=== PATIENT | female | born 2000 | race Caucasian/White ===

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

== ENCOUNTER 2021-02-23 00:43 | Emergency (ER) | payer MEDICAID ==
--- NOTE | 2021-02-23 02:02 | ERPHSYRPT ---
- History of Present Illness Source: patient, other (SO) Exam Limitations: no limitations Patient Subjective Stated Complaint: pt states "I am having upper back pain since this morning." Triage Nursing Assessment: pt ambulated into the er; pt is axo x4; c/o upper back pain; pt states 8/10 pain to upper back; pt denies injury to back; pt denies twisting or lifting heavy objects; pt has clear lung sounds in all lobes; clear heart tones; tenderness to upper back with palpitation; no deformity present; vitals wnl Physician History: 20 yo wf w superior thoracic pain starting at 17:00. Pain is sharp-stabbing, 5 out 10, and worse w movement. She states that the pain radiates to her chest at times. Trauma is denied, along w dyspnea/N/V/diaphoresis/fever/cough. Pt has never had this pain before. is denied. Timing/Duration: other (17:00) Method of Injury: other (No injury) Quality: sharp, stabbing Back Pain Location: T-spine Severity of Pain-Max: severe Severity of Pain-Current: moderate Modifying Factors: Improves With: nothing, movement Associated Symptoms: No fever, No chills, No sweating, No urinary incontinence, No loss of bowel control, No constipation, No nausea, No vomiting, No problems urinating, No light-headedness, No dizziness, No numbness in legs/feet, No weakness, No sensory/motor loss, No tingling in legs/feet, No lower back pain, No muscle spasms Previous symptoms: no prior history Allergies/Adverse Reactions: No Known Drug Allergies Allergy (Verified 02/23/21 01:24) Hx Tetanus, Diphtheria Vaccination/Date Given: Yes (May 2018) Hx Influenza Vaccination/Date Given: Yes Hx Pneumococcal Vaccination/Date Given: No Travel Risk - International Travel Have you traveled outside of the country in past 3 weeks: No - Coronavirus Screening Are you exhibiting any of the following symptoms?: No Close contact with a COVID-19 positive Pt in past 14-21 Days: No - Vaccine Status Have you recieved a Covid-19 vaccination: No - Review of Systems Constitutional: No Symptoms Eyes: No Symptoms Ears, Nose, & Throat: No Symptoms Respiratory: No Symptoms Cardiac: No Symptoms, Chest Pain Abdominal/Gastrointestinal: No Symptoms Genitourinary Symptoms: No Symptoms Musculoskeletal: No Symptoms Skin: No Symptoms Neurological: No Symptoms Psychological: No Symptoms Endocrine: No Symptoms Hematologic/Lymphatic: No Symptoms Immunological/Allergic: No Symptoms - Past Medical History Pertinent Past Medical History: No Neurological History: No Pertinent History ENT History: No Pertinent History Cardiac History: No Pertinent History Respiratory History: No Pertinent History Endocrine Medical History: No Pertinent History Musculoskeletal History: No Pertinent History GI Medical History: No Pertinent History History: No Pertinent History Psycho-Social History: No Pertinent History Female Reproductive Disorders: No Pertinent History - Past Surgical History Past Surgical History: Yes Neuro Surgical History: No Pertinent History Cardiac: No Pertinent History Respiratory: No Pertinent History Gastrointestinal: No Pertinent History Genitourinary: No Pertinent History Musculoskeletal: No Pertinent History Female Surgical History: Dilation & Curettage Other Surgical History: D&C 09/2018 - Social History Smoking Status: Never smoker Exposure to second hand smoke: No Drug Use: none Patient Lives Alone: No Significant Family History: no pertinent family hx - Female History Hx Now: No (unknown) - Nursing Vital Signs Nursing Vital Signs: Initial Vital Signs Temperature 99 F 02/23/21 01:28 Pulse Rate 81 02/23/21 01:28 Respiratory Rate 16 02/23/21 01:28 Blood Pressure 122/69 02/23/21 01:28 O2 Sat by Pulse Oximetry 100 02/23/21 01:28 Pain Scale Pain Intensity [Upper Back] 8 Pain Intensity 5 WNL - Physical Exam General Appearance: no apparent distress Eye Exam: PERRL/EOMI, eyes nml inspection Ears, Nose, Throat Exam: normal ENT inspection, TMs normal, pharynx normal Neck Exam: normal inspection, non-tender, supple, full range of motion, No meningismus Respiratory Exam: normal breath sounds, lungs clear, airway intact, No chest tenderness, No respiratory distress Cardiovascular Exam: regular rate/rhythm, normal heart sounds, normal peripheral pulses, No murmur Gastrointestinal Exam: soft, normal bowel sounds, No tenderness Back Exam: normal range of motion, vertebral tenderness (Mid T-spine paraspinous musculature TTP), No CVA tenderness Extremity Exam: normal inspection, normal range of motion Peripheral Pulses: carotid (R): 2+, carotid (L): 2+ Neurologic Exam: alert, oriented x 3, cooperative, engineer geophysical laboratory II-XII nml as tested, normal mood/affect, nml cerebellar function, nml station & gait, sensation nml, No motor deficits, No sensory deficit Skin Exam: normal color, warm, dry Lymphatic Exam: No adenopathy SpO2 Interpretation: normal SpO2: 100 O2 Delivery: Room Air - Course EKG Interpreted by Me: RATE (NSR/R67/Normal QT-QTc/Low voltage) Ordered Tests: Active Orders 24 hr Category Date Time Status EKG-ER Only STAT Care 02/23/21 01:56 Completed CHEST 1 VIEW (PORTABLE) Stat Exams 02/23/21 01:57 Taken CBC W DIFF Stat Lab 02/23/21 02:10 Completed CMP Stat Lab 02/23/21 02:10 Completed D-DIMER QUANTITATIVE Stat Lab 02/23/21 02:10 Completed TROPONIN Q3H Lab 02/23/21 02:10 Completed Medication Summary Discontinued Medications Generic Name Dose Route Start Last Admin Trade Name Freq PRN Reason Stop Dose Admin Ketorolac Tromethamine 60 mg 02/23/21 02:55 02/23/21 02:57 Toradol 30 Mg Injection IM 02/23/21 02:56 60 mg STAT ONE Administration Ketorolac Tromethamine Confirm 02/23/21 02:56 Toradol 30 Mg Injection Administered 02/23/21 02:57 Dose 60 mg [facility] Lab/Rad Data: Laboratory Result Diagrams 02/23/21 02:10 02/23/21 02:10 Laboratory Results 02/23/21 02/23/21 02/23/21 Range/Units 02:10 02:10 02:10 WBC (4.0-10.5) K/mm3 RBC (4.1-5.4) M/mm3 Hgb (12.0-16.0) gm/dl Hct (35-47) % MCV (78-100) fl MCH (26-32) pg MCHC (32-36) g/dl RDW (11.5-14.0) % Plt Count (150-450) K/mm3 MPV (7.5-11.0) fl Gran % (36.0-66.0) % Eos # (Auto) (0-0.5) Absolute Lymphs (auto) (1.0-4.6) Absolute Monos (auto) (0.0-1.3) Lymphocytes % (24.0-44.0) % Monocytes % (0.0-12.0) % Eosinophils % (0.00-5.0) % Basophils % (0.0-0.4) % Absolute Granulocytes (1.4-6.9) Basophils # (0-0.4) D-Dimer 256 (215-500) ng/mL Sodium 140 (137-145) mmol/L Potassium 4.3 (3.5-5.1) mmol/L Chloride 103 (98-107) mmol/L Carbon Dioxide 28 (22-30) mmol/L Anion Gap 12.9 (5-15) MEQ/L BUN 9 (7-17) mg/dL Creatinine 0.72 (0.52-1.04) mg/dL Estimated GFR > 60.0 ML/MIN Glucose 101 (74-106) mg/dL Calcium 9.2 (8.4-10.2) mg/dL Total Bilirubin 0.30 (0.2-1.3) mg/dL AST 27 (14-36) U/L ALT 16 (0-35) U/L Alkaline Phosphatase 80 (38-126) U/L Troponin I < 0.012 (0.000-0.034) ng/mL Serum Total Protein 7.7 (6.3-8.2) g/dL Albumin 4.3 (3.5-5.0) g/dL 02/23/21 Range/Units 02:10 WBC 6.5 (4.0-10.5) K/mm3 RBC 5.18 (4.1-5.4) M/mm3 Hgb 13.5 (12.0-16.0) gm/dl Hct 42.0 (35-47) % MCV 81.1 (78-100) fl MCH 26.1 (26-32) pg MCHC 32.1 (32-36) g/dl RDW 14.6 H (11.5-14.0) % Plt Count 394 (150-450) K/mm3 MPV 9.4 (7.5-11.0) fl Gran % 50.8 (36.0-66.0) % Eos # (Auto) 0.21 (0-0.5) Absolute Lymphs (auto) 2.28 (1.0-4.6) Absolute Monos (auto) 0.65 (0.0-1.3) Lymphocytes % 35.3 (24.0-44.0) % Monocytes % 10.1 (0.0-12.0) % Eosinophils % 3.3 (0.00-5.0) % Basophils % 0.5 (0.0-0.4) % Absolute Granulocytes 3.28 (1.4-6.9) Basophils # 0.03 (0-0.4) D-Dimer (215-500) ng/mL Sodium (137-145) mmol/L Potassium (3.5-5.1) mmol/L Chloride (98-107) mmol/L Carbon Dioxide (22-30) mmol/L Anion Gap (5-15) MEQ/L BUN (7-17) mg/dL Creatinine (0.52-1.04) mg/dL Estimated GFR ML/MIN Glucose (74-106) mg/dL Calcium (8.4-10.2) mg/dL Total Bilirubin (0.2-1.3) mg/dL AST (14-36) U/L ALT (0-35) U/L Alkaline Phosphatase (38-126) U/L Troponin I (0.000-0.034) ng/mL Serum Total Protein (6.3-8.2) g/dL Albumin (3.5-5.0) g/dL - Progress Progress Note: 02/23/21 02:56 60mg IM Toradol Counseled pt/family regarding: lab results, diagnosis, need for follow-up, rad results - Departure Departure Disposition: Home Clinical Impression: Back pain Condition: Stable Critical Care Time: No Referrals: SERGIO PRICE NP [Primary Care Provider] - Instructions: Upper Back Pain (DC) Additional Instructions: Rest/Heat/Massage Toradol as needed for pain Prescriptions: Ketorolac Tromethamine [Toradol] 10 mg PO TID PRN #10 tablet PRN Reason: Pain
[2021-02-23 02:16] LABS: Absolute Neutrophil Ct (ANC) 3.28 (1.4-6.9); BASOPHIL % 0.5 % (0.0-0.4); Basophil (Absolute #) 0.03 (0-0.4); Eosinophil % 3.3 % (0.00-5.0); Eosinophil (Absolute #) 0.21 (0-0.5); Hemoglobin 13.5 gm/dl (12.0-16.0); Lymphocyte (Absolute #) 2.28 (1.0-4.6); Lymphocytes % 35.3 % (24.0-44.0); Mean Cell Volume 81.1 fl (78-100); Mean Corpuscular Hemoglobin 26.1 pg (26-32); Mean Corpuscular Hgb Concent. 32.1 g/dl (32-36); Mean Platelet Volume 9.4 fl (7.5-11.0); Monocyte (Absolute #) 0.65 (0.0-1.3); Monocytes % 10.1 % (0.0-12.0); Neutrophil % 50.8 % (36.0-66.0); Platelet Count 394 K/mm3 (150-450); Red Blood Count 5.18 M/mm3 (4.1-5.4); Red Cell Distribution Width 14.6 % (11.5-14.0); White Blood Count 6.5 K/mm3 (4.0-10.5)
[2021-02-23 02:34] LABS: ALBUMIN 4.3 g/dL (3.5-5.0); ALKALINE PHOSPHATASE 80 U/L (38-126); ANION GAP 12.9 MEQ/L (5-15); BLOOD UREA NITROGEN 9 mg/dL (7-17); CHLORIDE 103 mmol/L (98-107); Calcium 9.2 mg/dL (8.4-10.2); Carbon Dioxide 28 mmol/L (22-30); Creatinine 1 0.72 mg/dL (0.52-1.04); EST GLOMERULAR FILTRATION RATE > 60.0 ML/MIN; Glucose 101 mg/dL (74-106); Potassium 4.3 mmol/L (3.5-5.1); SGOT/AST 27 U/L (14-36); SGPT/ALT 16 U/L (0-35); SODIUM 140 mmol/L (137-145); Total Protein 7.7 g/dL (6.3-8.2)
[2021-02-23 02:47] VITALS: BP 112/61; PULSE 70
[2021-02-23] MEDS ORDERED: TORAdol 30 mg Injection IM ONE (02:55)
[2021-02-23] MEDS ORDERED: TORAdol 30 mg Injection ONE (02:56)
[2021-02-23 02:58] VITALS: O2SAT 100
--- NOTE | 2021-02-23 09:09 | XRAY ---
Indication: Superior thoracic pain. Comparison: None Portable chest demonstrates normal heart, lungs, and bony thorax.
== END 2021-02-23 03:06 | disposition home or self-care (01) ==
LOC: ED 00:43
DX: M54.9 Dorsalgia, unspecified (principal); M54.6 Pain in thoracic spine
CPT/HCPCS: 36415; 71045; 80053; 84484; 85025; 85379; 93005; 96372; 99284; J1885

== ENCOUNTER 2021-05-23 17:28 | Emergency (ER) | payer MEDICAID ==
[2021-05-23] MEDS ORDERED: Sodium Chloride 0.9% 1000 ML 1,000 ML IV STA (17:52)
[2021-05-23] MEDS ORDERED: PROTONIX 40 MG IV IV ONE (17:52)
[2021-05-23] MEDS ORDERED: Reglan 10 MG/2 ML IV ONE (17:52)
[2021-05-23 18:01] VITALS: O2SAT 99
[2021-05-23 18:25] LABS: Appearance SLIGHTLY CLOUDY (CLEAR); Bacteria RARE /HPF (NEGATIVE); Bilirubin NEGATIVE (NEGATIVE); Blood NEGATIVE Ery/ul (0-5); Epithelial Cells FEW /HPF (FEW); Glucose NEGATIVE (NEGATIVE); Ketones NEGATIVE (NEGATIVE); Leukocyte Esterase SMALL (NEGATIVE); Mucus SLIGHT /HPF (NEGATIVE); Nitrite NEGATIVE (NEGATIVE); Protein,Urine Dip NEGATIVE (Negative); RBC 0-2 /HPF (0-2); Specific Gravity 1.025 (1.005-1.025); Urobilinogen NEGATIVE mg/dL (0-1)
[2021-05-23 18:25] LABS: Absolute Neutrophil Ct (ANC) 2.34 (1.4-6.9); BASOPHIL % 0.4 % (0.0-0.4); Basophil (Absolute #) 0.02 (0-0.4); Eosinophil % 2.5 % (0.00-5.0); Eosinophil (Absolute #) 0.11 (0-0.5); Hemoglobin 13.1 gm/dl (12.0-16.0); Lymphocyte (Absolute #) 1.41 (1.0-4.6); Lymphocytes % 31.5 % (24.0-44.0); Mean Corpuscular Hemoglobin 25.9 pg (26-32); Mean Platelet Volume 9.4 fl (7.5-11.0); Monocyte (Absolute #) 0.59 (0.0-1.3); Monocytes % 13.2 % (0.0-12.0); Neutrophil % 52.4 % (36.0-66.0); Platelet Count 339 K/mm3 (150-450); Red Blood Count 5.06 M/mm3 (4.1-5.4); Red Cell Distribution Width 14.3 % (11.5-14.0); White Blood Count 4.5 K/mm3 (4.0-10.5)
[2021-05-23] MEDS ORDERED: Sodium Chloride 0.9% 1000 ML 1,000 ML ONE (18:29)
[2021-05-23 18:38] LABS: ALBUMIN 4.2 g/dL (3.5-5.0); ALKALINE PHOSPHATASE 91 U/L (38-126); AMYLASE 50 U/L (30-110); ANION GAP 11.4 MEQ/L (5-15); BLOOD UREA NITROGEN 8 mg/dL (7-17); CHLORIDE 105 mmol/L (98-107); Calcium 9.4 mg/dL (8.4-10.2); Carbon Dioxide 27 mmol/L (22-30); Creatinine 1 0.76 mg/dL (0.52-1.04); EST GLOMERULAR FILTRATION RATE > 60.0 ML/MIN; Glucose 96 mg/dL (74-106); LIPASE 53 U/L (23-300); Potassium 4.2 mmol/L (3.5-5.1); SGOT/AST 24 U/L (14-36); SGPT/ALT 18 U/L (0-35); SODIUM 139 mmol/L (137-145); Total Protein 7.4 g/dL (6.3-8.2)
--- NOTE | 2021-05-23 18:40 | ERPHSYRPT ---
- History of Present Illness Time Seen by Provider: 05/23/21 18:00 Historian: patient Exam Limitations: no limitations Patient Subjective Stated Complaint: Pt states "I have had belly pain since I woke up this morning." Triage Nursing Assessment: Pt presented alert and oriented X 3, skin pwd Pt ambulates with an upright steady gait, able to speak in clear full senences. pt in no apparent respiratory distress. pt drinking gatoraid and playing on her phone. Physician History: Patient is a 20-year-old female who presents with her who is in another room with gastroenteritis. She presents with suprapubic pressure and pain she denies any urinary frequency urgency or dysuria. She has some mild bilateral flank pain she denies nausea vomiting or diarrhea. Timing/Duration: yesterday Activities at Onset: none Quality: pressure Abdominal Pain Onset Location: suprapubic Pain Radiation: no radiation Severity of Pain-Max: mild Severity of Pain-Current: mild Modifying Factors: Improves With: nothing Previous symptoms: no prior history Allergies/Adverse Reactions: No Known Drug Allergies Allergy (Verified 02/23/21 01:24) Hx Tetanus, Diphtheria Vaccination/Date Given: Yes Hx Influenza Vaccination/Date Given: Yes Hx Pneumococcal Vaccination/Date Given: No Immunizations Up to Date: Yes Travel Risk - International Travel Have you traveled outside of the country in past 3 weeks: No - Coronavirus Screening Are you exhibiting any of the following symptoms?: No Close contact with a COVID-19 positive Pt in past 14-21 Days: No - Vaccine Status Have you recieved a Covid-19 vaccination: No - Review of Systems Constitutional: No Fever, No Chills Eyes: No Symptoms Ears, Nose, & Throat: No Symptoms Respiratory: No Cough, No Dyspnea Cardiac: No Chest Pain, No Edema, No Syncope Abdominal/Gastrointestinal: No Abdominal Pain, No Nausea, No Vomiting, No Diarrhea Genitourinary Symptoms: No Dysuria Musculoskeletal: No Back Pain, No Neck Pain Skin: No Rash Neurological: No Dizziness, No Focal Weakness, No Sensory Changes Psychological: No Symptoms Endocrine: No Symptoms All Other Systems: Reviewed and Negative - Past Medical History Pertinent Past Medical History: No Neurological History: No Pertinent History ENT History: No Pertinent History Cardiac History: No Pertinent History Respiratory History: No Pertinent History Endocrine Medical History: No Pertinent History Musculoskeletal History: No Pertinent History GI Medical History: No Pertinent History History: No Pertinent History Psycho-Social History: No Pertinent History Female Reproductive Disorders: No Pertinent History - Past Surgical History Past Surgical History: Yes Neuro Surgical History: No Pertinent History Cardiac: No Pertinent History Respiratory: No Pertinent History Gastrointestinal: No Pertinent History Genitourinary: No Pertinent History Musculoskeletal: No Pertinent History Female Surgical History: Dilation & Curettage Other Surgical History: D&C 09/2018 - Social History Smoking Status: Never smoker Exposure to second hand smoke: No Drug Use: none Patient Lives Alone: No Significant Family History: no pertinent family hx - Female History Hx Last Menstrual Period: Hx Now: No - Nursing Vital Signs Nursing Vital Signs: Initial Vital Signs Temperature 97.8 F 05/23/21 17:56 Pulse Rate 89 05/23/21 17:56 Respiratory Rate 20 05/23/21 17:56 Blood Pressure 127/63 05/23/21 17:56 O2 Sat by Pulse Oximetry 99 05/23/21 17:56 Pain Scale Pain Intensity 6 - Physical Exam General Appearance: mild distress, alert Eye Exam: PERRL/EOMI, eyes nml inspection Ears, Nose, Throat Exam: normal ENT inspection, pharynx normal, moist mucous membranes Neck Exam: normal inspection, non-tender, supple, full range of motion Respiratory Exam: normal breath sounds, lungs clear, No respiratory distress Cardiovascular Exam: regular rate/rhythm, normal heart sounds Gastrointestinal/Abdomen Exam: soft, tenderness (Over the suprapubic area), No mass Back Exam: normal inspection, normal range of motion, No CVA tenderness, No vertebral tenderness Extremity Exam: normal inspection, normal range of motion, pelvis stable Neurologic Exam: alert, oriented x 3, cooperative, normal mood/affect, nml cerebellar function, sensation nml, No motor deficits Skin Exam: normal color, warm, dry SpO2 Interpretation: normal SpO2: 99 O2 Delivery: Room Air - Course Nursing assessment & vital signs reviewed: Yes Ordered Tests: Active Orders 24 hr Category Date Time Status IV Insertion STAT Care 05/23/21 17:52 Active OBSTR/ACUTE ABDOMEN SERIES Stat Exams 05/23/21 17:52 Ordered AMYLASE Stat Lab 05/23/21 18:22 Received CBC W DIFF Stat Lab 05/23/21 18:22 Completed CMP Stat Lab 05/23/21 18:22 Received CULTURE,URINE Stat Lab 05/23/21 18:09 Received HCG,QUALITATIVE URINE Stat Lab 05/23/21 18:25 Completed LIPASE Stat Lab 05/23/21 18:22 Received Lactic Acid Stat Lab 05/23/21 18:15 Completed UA W/RFX UR CULTURE Stat Lab 05/23/21 18:09 Completed Medication Summary Generic Name Dose Route Start Last Admin Trade Name Fabien PRN Reason Stop Dose Admin Sodium Chloride 1,000 mls @ 999 mls/hr 05/23/21 17:52 05/23/21 18:31 Sodium Chloride 0.9% 1000 Ml IV 05/23/21 18:52 999 mls/hr .[id number] STA Administration Discontinued Medications Generic Name Dose Route Start Last Admin Trade Name Freq PRN Reason Stop Dose Admin Sodium Chloride Confirm 05/23/21 18:29 Sodium Chloride 0.9% 1000 Ml Administered 05/23/21 18:30 Dose 1,000 mls @ ud .ROUTE .STK-MED ONE Metoclopramide HCl 10 mg 05/23/21 17:52 Metoclopramide Hcl 10 Mg/2 Ml Vial IV 05/23/21 17:53 STAT ONE Pantoprazole Sodium 40 mg 05/23/21 17:52 Pantoprazole 40 Mg Vial IV 05/23/21 17:53 STAT ONE Lab/Rad Data: Laboratory Result Diagrams 05/23/21 18:22 Laboratory Results 05/23/21 05/23/21 05/23/21 Range/Units 18:25 18:22 18:15 WBC 4.5 (4.0-10.5) K/mm3 RBC 5.06 (4.1-5.4) M/mm3 Hgb 13.1 (12.0-16.0) gm/dl Hct 41.0 (35-47) % MCV 81.0 (78-100) fl MCH 25.9 L (26-32) pg MCHC 32.0 (32-36) g/dl RDW 14.3 H (11.5-14.0) % Plt Count 339 (150-450) K/mm3 MPV 9.4 (7.5-11.0) fl Gran % 52.4 (36.0-66.0) % Eos # (Auto) 0.11 (0-0.5) Absolute Lymphs (auto) 1.41 (1.0-4.6) Absolute Monos (auto) 0.59 (0.0-1.3) Lymphocytes % 31.5 (24.0-44.0) % Monocytes % 13.2 H (0.0-12.0) % Eosinophils % 2.5 (0.00-5.0) % Basophils % 0.4 (0.0-0.4) % Absolute Granulocytes 2.34 (1.4-6.9) Basophils # 0.02 (0-0.4) Lactic Acid 1.0 (0.4-2.0) Urine Color (YELLOW) Urine Appearance (CLEAR) Urine pH (5-6) Ur Specific [place] (1.005-1.025) Urine Protein (Negative) Urine Ketones (NEGATIVE) Urine Blood (0-5) Nawaf/ul Urine Nitrite (NEGATIVE) Urine Bilirubin (NEGATIVE) Urine Urobilinogen (0-1) mg/dL Ur Leukocyte Esterase (NEGATIVE) Urine WBC (Auto) (0-5) /HPF Urine RBC (Auto) (0-2) /HPF U Epithel Cells (Auto) (FEW) /HPF Urine Bacteria (Auto) (NEGATIVE) /HPF Urine Mucus (Auto) (NEGATIVE) /HPF Urine Culture Reflexed (NO) Urine Glucose (NEGATIVE) mg/dL Urine HCG, Qual NEGATIVE (Negative) 05/23/21 Range/Units 18:09 WBC (4.0-10.5) K/mm3 RBC (4.1-5.4) M/mm3 Hgb (12.0-16.0) gm/dl Hct (35-47) % MCV (78-100) fl MCH (26-32) pg MCHC (32-36) g/dl RDW (11.5-14.0) % Plt Count (150-450) K/mm3 MPV (7.5-11.0) fl Gran % (36.0-66.0) % Eos # (Auto) (0-0.5) Absolute Lymphs (auto) (1.0-4.6) Absolute Monos (auto) (0.0-1.3) Lymphocytes % (24.0-44.0) % Monocytes % (0.0-12.0) % Eosinophils % (0.00-5.0) % Basophils % (0.0-0.4) % Absolute Granulocytes (1.4-6.9) Basophils # (0-0.4) Lactic Acid (0.4-2.0) Urine Color YELLOW (YELLOW) Urine Appearance SLIGHTLY CLOUDY (CLEAR) Urine pH 5.0 (5-6) Ur Specific [place] 1.025 (1.005-1.025) Urine Protein NEGATIVE (Negative) Urine Ketones NEGATIVE (NEGATIVE) Urine Blood NEGATIVE (0-5) [place]af/ul Urine Nitrite NEGATIVE (NEGATIVE) Urine Bilirubin NEGATIVE (NEGATIVE) Urine Urobilinogen NEGATIVE (0-1) mg/dL Ur Leukocyte Esterase SMALL (NEGATIVE) Urine WBC (Auto) 16-25 (0-5) /HPF Urine RBC (Auto) 0-2 (0-2) /HPF U Epithel Cells (Auto) FEW (FEW) /HPF Urine Bacteria (Auto) RARE (NEGATIVE) /HPF Urine Mucus (Auto) SLIGHT (NEGATIVE) /HPF Urine Culture Reflexed YES (NO) Urine Glucose NEGATIVE (NEGATIVE) mg/dL Urine HCG, Qual (Negative) - Progress Progress: improved - Departure Departure Disposition: Home Clinical Impression: Urinary tract infection Condition: Stable Critical Care Time: No Referrals: SERGIO PRICE NP [Primary Care Provider] - Follow up/PCP as directed Instructions: Urinary Tract Infection, Adult (DC) Prescriptions: Cephalexin Mh 500 mg [Keflex 500 mg] 500 mg PO TID #21 cap
[2021-05-23 19:03] VITALS: BP 117/81; PULSE 68
--- NOTE | 2021-05-24 08:44 | XRAY ---
Indication: Pelvic pain. UTI. Comparison: Chest exam February 23, 2021. 2 view abdomen nonacute and nonobstructed with incidental minimal levoscoliosis. Remaining solid organs and osseous structures unremarkable. Single PA chest again demonstrates normal heart, lungs, and bony thorax. Impression: Negative abdomen. Normal 1 view chest.
== END 2021-05-23 19:45 | disposition home or self-care (01) ==
LOC: ED 17:28
DX: N39.0 Urinary tract infection, site not specified (principal)
CPT/HCPCS: 36000; 36415; 74022; 80053; 81001; 82150; 83605; 83690; 84703; 85025; 87077; 87086; 87186; 96360; 99284

== ENCOUNTER 2021-10-20 06:12 | Emergency (ER) | payer MEDICAID ==
--- NOTE | 2021-10-20 06:24 | ERPHSYRPT ---
- History of Present Illness Historian: patient Exam Limitations: no limitations Timing/Duration: today, hour(s) (1) Activities at Onset: none Quality: aching Abdominal Pain Onset Location: epigastric Pain Radiation: no radiation Severity of Pain-Max: moderate Severity of Pain-Current: moderate Modifying Factors: Improves With: vomiting Associated Symptoms: nausea, vomiting Previous symptoms: no prior history Hx Tetanus, Diphtheria Vaccination/Date Given: Yes Hx Influenza Vaccination/Date Given: Yes Hx Pneumococcal Vaccination/Date Given: No - History of Present Illness Time Seen by Provider: 10/20/21 06:24 Physician History: This is an overweight 21 y/o white female who presents with one hour h/o sudden onset of nonradiating, epigastric pain, n/v and could not breathe. she has no h/o abd surgeries. never had anything like this before. she at [employer] last pm. no other individuals who ate the same thing had similar sx. denies cp. her sob has resolved. pt has nkda. pt does not take medications chronically. 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 pts lmp was early september (GRIFFIN MEZA) Allergies/Adverse Reactions: No Known Drug Allergies Allergy (Verified 10/20/21 06:22) Travel Risk - International Travel Have you traveled outside of the country in past 3 weeks: No - Coronavirus Screening Are you exhibiting any of the following symptoms?: No Close contact with a COVID-19 positive Pt in past 14-21 Days: No - Vaccine Status Have you recieved a Covid-19 vaccination: No - Review of Systems Constitutional: No Symptoms Eyes: No Symptoms Ears, Nose, & Throat: No Symptoms Respiratory: No Symptoms Cardiac: No Symptoms Abdominal/Gastrointestinal: Abdominal Pain, Nausea, Vomiting Musculoskeletal: No Symptoms Skin: No Symptoms Neurological: No Symptoms Psychological: No Symptoms Endocrine: No Symptoms Hematologic/Lymphatic: No Symptoms Immunological/Allergic: No Symptoms All Other Systems: Reviewed and Negative - Past Medical History Pertinent Past Medical History: No Neurological History: No Pertinent History ENT History: No Pertinent History Cardiac History: No Pertinent History Respiratory History: No Pertinent History Endocrine Medical History: No Pertinent History Musculoskeletal History: No Pertinent History GI Medical History: No Pertinent History History: No Pertinent History Psycho-Social History: No Pertinent History Female Reproductive Disorders: No Pertinent History - Past Surgical History Past Surgical History: Yes Neuro Surgical History: No Pertinent History Cardiac: No Pertinent History Respiratory: No Pertinent History Gastrointestinal: No Pertinent History Genitourinary: No Pertinent History Musculoskeletal: No Pertinent History Female Surgical History: Dilation & Curettage Other Surgical History: D&C 09/2018 - Social History Smoking Status: Never smoker Exposure to second hand smoke: No Drug Use: none Patient Lives Alone: No Significant Family History: no pertinent family hx - Physical Exam General Appearance: no apparent distress, alert, anxiety, obese Eye Exam: PERRL/EOMI, eyes nml inspection Ears, Nose, Throat Exam: normal ENT inspection, moist mucous membranes Neck Exam: normal inspection, non-tender, supple, full range of motion Respiratory Exam: normal breath sounds, lungs clear, airway intact, No chest tenderness, No respiratory distress Cardiovascular Exam: regular rate/rhythm, normal heart sounds, normal peripheral pulses Gastrointestinal/Abdomen Exam: soft, normal bowel sounds, tenderness (epigastric to palpation), guarding, No rebound Pelvic Exam: not done Rectal Exam: not done Back Exam: normal inspection, normal range of motion, No CVA tenderness, No vertebral tenderness Extremity Exam: normal inspection, normal range of motion, pelvis stable Neurologic Exam: alert, oriented x 3, cooperative, membership coordinator II-XII nml as tested, normal mood/affect, nml cerebellar function, nml station & gait, sensation nml Skin Exam: normal color, warm, dry Lymphatic Exam: No adenopathy SpO2 Interpretation: normal O2 Delivery: Room Air - Nursing Vital Signs Nursing Vital Signs: Initial Vital Signs Temperature 97.3 F 10/20/21 06:23 Pulse Rate 73 10/20/21 06:23 Respiratory Rate 20 10/20/21 06:23 Blood Pressure 122/75 10/20/21 06:23 O2 Sat by Pulse Oximetry 100 10/20/21 06:23 Pain Scale Pain Intensity 0 - Course Nursing assessment & vital signs reviewed: Yes Ordered Tests: Active Orders 24 hr Category Date Time Status IV Insertion STAT Care 10/20/21 06:38 Active ABDOMEN AND PELVIS W/0 CONTRAS [CT] Stat Exams 10/20/21 06:38 Completed AMYLASE Stat Lab 10/20/21 06:48 Completed CBC W DIFF Stat Lab 10/20/21 06:48 Completed CMP Stat Lab 10/20/21 06:48 Completed HCG,QUALITATIVE URINE Stat Lab 10/20/21 06:29 Completed LIPASE Stat Lab 10/20/21 06:48 Completed Lactic Acid Stat Lab 10/20/21 06:50 Completed UA W/RFX CULTURE Stat Lab 10/20/21 06:29 Completed Medication Summary Discontinued Medications Generic Name Dose Route Start Last Admin Trade Name Sanderq PRN Reason Stop Dose Admin Hydromorphone HCl 1 mg 10/20/21 06:38 10/20/21 07:08 Hydromorphone 1 Mg/1ml Inj 1 Mg/Ml Syringe IV 10/20/21 06:39 Not Given STAT ONE Sodium Chloride 1,000 mls @ 999 mls/hr 10/20/21 06:38 10/20/21 08:46 Sodium Chloride 0.9% 1000 Ml IV 10/20/21 07:38 Infused .Q1H1M STA Infusion Sodium Chloride Confirm 10/20/21 07:27 Sodium Chloride 0.9% 1000 Ml Administered 10/20/21 07:28 Dose 1,000 mls @ ud .ROUTE .STK-MED ONE Ondansetron HCl 4 mg 10/20/21 06:38 10/20/21 07:07 Ondansetron Hcl 4 Mg/2 Ml Vial IV 10/20/21 06:39 Not Given STAT ONE Ondansetron HCl 4 mg 10/20/21 08:24 10/20/21 08:26 Ondansetron Hcl 4 Mg/2 Ml Vial IV 10/20/21 08:25 4 mg STAT ONE Administration Ondansetron HCl Confirm 10/20/21 08:25 Ondansetron Hcl 4 Mg/2 Ml Vial Administered 10/20/21 08:26 Dose 4 mg .ROUTE .STK-MED ONE Lab/Rad Data: Laboratory Result Diagrams 10/20/21 06:48 10/20/21 06:48 Laboratory Results 10/20/21 10/20/21 10/20/21 Range/Units 06:50 06:48 06:48 WBC 8.1 (4.0-10.5) K/mm3 RBC 5.01 (4.1-5.4) M/mm3 Hgb 14.1 (12.0-16.0) gm/dl Hct 42.0 (35-47) % MCV 83.8 (78-100) fl MCH 28.1 (26-32) pg MCHC 33.6 (32-36) g/dl RDW 14.2 H (11.5-14.0) % Plt Count 320 (150-450) K/mm3 MPV 9.6 (7.5-11.0) fl Gran % 57.0 (36.0-66.0) % Eos # (Auto) 0.20 (0-0.5) Absolute Lymphs (auto) 2.53 (1.0-4.6) Absolute Monos (auto) 0.74 (0.0-1.3) Lymphocytes % 31.2 (24.0-44.0) % Monocytes % 9.1 (0.0-12.0) % Eosinophils % 2.5 (0.00-5.0) % Basophils % 0.2 (0.0-0.4) % Absolute Granulocytes 4.61 (1.4-6.9) Basophils # 0.02 (0-0.4) Sodium 139 (137-145) mmol/L Potassium 3.8 (3.5-5.1) mmol/L Chloride 104 (98-107) mmol/L Carbon Dioxide 24 (22-30) mmol/L Anion Gap 14.4 (5-15) MEQ/L BUN 12 (7-17) mg/dL Creatinine 0.67 (0.52-1.04) mg/dL Estimated GFR > 60.0 ML/MIN Glucose 103 (74-106) mg/dL Lactic Acid 0.8 (0.4-2.0) Calcium 9.4 (8.4-10.2) mg/dL Total Bilirubin 0.40 (0.2-1.3) mg/dL AST 29 (14-36) U/L ALT 18 (0-35) U/L Alkaline Phosphatase 77 (38-126) U/L Serum Total Protein 8.1 (6.3-8.2) g/dL Albumin 4.4 (3.5-5.0) g/dL Amylase 71 (30-110) U/L Lipase 90 (23-300) U/L Urinalys Dipstick Clnc Urine Color (YELLOW) Urine Appearance (CLEAR) Urine pH (5-6) Ur Specific [place] (1.005-1.025) POC Urine Protein Conf (Negative) Urine Ketones (NEGATIVE) Urine Nitrite (NEGATIVE) Urine Bilirubin (NEGATIVE) Urine Urobilinogen (0-1) mg/dL Urine Leukocytes (NEGATIVE) Urine WBC (Auto) (0-5) /HPF Urine RBC (Auto) (0-2) /HPF U Epithel Cells (Auto) (FEW) /HPF Urine Bacteria (Auto) (NEGATIVE) /HPF Urine RBC (0-5) Nawaf/ul Ur Culture Indicated? Urine Glucose (NEGATIVE) mg/dL Urine HCG, Qual (Negative) 10/20/21 10/20/21 Range/Units 06:29 06:29 WBC (4.0-10.5) K/mm3 RBC (4.1-5.4) M/mm3 Hgb (12.0-16.0) gm/dl Hct (35-47) % MCV (78-100) fl MCH (26-32) pg MCHC (32-36) g/dl RDW (11.5-14.0) % Plt Count (150-450) K/mm3 MPV (7.5-11.0) fl Gran % (36.0-66.0) % Eos # (Auto) (0-0.5) Absolute Lymphs (auto) (1.0-4.6) Absolute Monos (auto) (0.0-1.3) Lymphocytes % (24.0-44.0) % Monocytes % (0.0-12.0) % Eosinophils % (0.00-5.0) % Basophils % (0.0-0.4) % Absolute Granulocytes (1.4-6.9) Basophils # (0-0.4) Sodium (137-145) mmol/L Potassium (3.5-5.1) mmol/L Chloride (98-107) mmol/L Carbon Dioxide (22-30) mmol/L Anion Gap (5-15) MEQ/L BUN (7-17) mg/dL Creatinine (0.52-1.04) mg/dL Estimated GFR ML/MIN Glucose (74-106) mg/dL Lactic Acid (0.4-2.0) Calcium (8.4-10.2) mg/dL Total Bilirubin (0.2-1.3) mg/dL AST (14-36) U/L ALT (0-35) U/L Alkaline Phosphatase (38-126) U/L Serum Total Protein (6.3-8.2) g/dL Albumin (3.5-5.0) g/dL Amylase (30-110) U/L Lipase (23-300) U/L Urinalys Dipstick Clnc MAIN LAB Urine Color YELLOW (YELLOW) Urine Appearance CLEAR (CLEAR) Urine pH 6.0 (5-6) Ur Specific [place] >=1.030 (1.005-1.025) POC Urine Protein Conf NEGATIVE (Negative) Urine Ketones NEGATIVE (NEGATIVE) Urine Nitrite NEGATIVE (NEGATIVE) Urine Bilirubin NEGATIVE (NEGATIVE) Urine Urobilinogen 0.2 (0-1) mg/dL Urine Leukocytes NEGATIVE (NEGATIVE) Urine WBC (Auto) 0-2 (0-5) /HPF Urine RBC (Auto) NONE (0-2) /HPF U Epithel Cells (Auto) RARE (FEW) /HPF Urine Bacteria (Auto) NONE (NEGATIVE) /HPF Urine RBC NEGATIVE (0-5) Nawaf/ul Ur Culture Indicated? NO Urine Glucose NEGATIVE (NEGATIVE) mg/dL Urine HCG, Qual NEGATIVE (Negative) - Progress Progress: improved, pain not gone completely, re-examined Counseled pt/family regarding: lab results, diagnosis, need for follow-up, rad results - Progress Progress Note: 10/20/21 06:39 pt is signed out to Dr. Villegas at shift change. he will follow up on test/study results and make final disposition (GRIFFIN MEZA) 10/20/21 09:36 55 years old is signed out to me at shift change from Dr. Meza with pending CT abdomen pelvis. Patient presented with upper abdominal pain with nausea vomiting. She is given pain medication and antiemetics, on my evaluation patient is feeling better. No peritoneal signs. Minimal upper abdominal burning sensation. Unremarkable lab work and CT abdomen pelvis grossly negative for any acute finding in the upper abdomen. Does have some ovarian cyst but no tenderness. I believe patient has GERD and we will start her on Protonix. Discussed signs symptoms of worsening needing return to ER which she seems understanding. Stable for discharge. (ELA VILLEGAS) - Departure Departure Disposition: Home Critical Care Time: No - Departure Clinical Impression: Abdominal pain Qualifiers: Abdominal location: upper abdomen, unspecified Qualified Code(s): R10.10 - Upper abdominal pain, unspecified Condition: Stable Referrals: SERGIO PRICE NP [Primary Care Provider] - Follow Up with PCP/3 days Instructions: Acute Abdomen (Belly Pain), Adult (DC) Additional Instructions: Do not take ibuprofen/Aleve or any other NSAIDs. Take Tylenol as needed. Follow-up with primary care for reevaluation. Return to ER for worsening abdominal pain/intractable vomiting/fever chills etc. Prescriptions: PANTOPRAZOLE 40 mg Tablet [Protonix 40MG Tablet] 40 mg PO QAM #30 tab
[2021-10-20] MEDS ORDERED: Sodium Chloride 0.9% 1000 ML 1,000 ML IV STA (06:38)
[2021-10-20] MEDS ORDERED: Zofran 4 MG/2 ML VIAL IV ONE ×2 (06:38→08:24)
[2021-10-20] MEDS ORDERED: Hydromorphone 1 mg/ml Injection IV ONE (06:38)
[2021-10-20 06:56] LABS: Absolute Neutrophil Ct (ANC) 4.61 (1.4-6.9); Basophil (Absolute #) 0.02 (0-0.4); Eosinophil % 2.5 % (0.00-5.0); Hemoglobin 14.1 gm/dl (12.0-16.0); Lymphocyte (Absolute #) 2.53 (1.0-4.6); Lymphocytes % 31.2 % (24.0-44.0); Mean Cell Volume 83.8 fl (78-100); Mean Corpuscular Hemoglobin 28.1 pg (26-32); Mean Corpuscular Hgb Concent. 33.6 g/dl (32-36); Mean Platelet Volume 9.6 fl (7.5-11.0); Monocyte (Absolute #) 0.74 (0.0-1.3); Monocytes % 9.1 % (0.0-12.0); Platelet Count 320 K/mm3 (150-450); Red Blood Count 5.01 M/mm3 (4.1-5.4); Red Cell Distribution Width 14.2 % (11.5-14.0); White Blood Count 8.1 K/mm3 (4.0-10.5)
[2021-10-20 07:07] LABS: Epithelial Cells RARE /HPF (FEW); WBC 0-2 /HPF (0-5)
[2021-10-20 07:08] LABS: Appearance CLEAR (CLEAR); Bilirubin NEGATIVE (NEGATIVE); Dipstick done @ ? MAIN LAB; Glucose NEGATIVE (NEGATIVE); Ketones NEGATIVE (NEGATIVE); Nitrite NEGATIVE (NEGATIVE); Protein,Urine Dip NEGATIVE (Negative); RBC NEGATIVE Ery/ul (0-5); Specific Gravity >=1.030 (1.005-1.025); Urine Cultured Indicated? NO; Urobilinogen 0.2 mg/dL (0-1)
[2021-10-20 07:08] LABS: ALBUMIN 4.4 g/dL (3.5-5.0); ALKALINE PHOSPHATASE 77 U/L (38-126); AMYLASE 71 U/L (30-110); ANION GAP 14.4 MEQ/L (5-15); BLOOD UREA NITROGEN 12 mg/dL (7-17); CHLORIDE 104 mmol/L (98-107); Calcium 9.4 mg/dL (8.4-10.2); Carbon Dioxide 24 mmol/L (22-30); Creatinine 1 0.67 mg/dL (0.52-1.04); EST GLOMERULAR FILTRATION RATE > 60.0 ML/MIN; Glucose 103 mg/dL (74-106); LIPASE 90 U/L (23-300); Potassium 3.8 mmol/L (3.5-5.1); SGOT/AST 29 U/L (14-36); SGPT/ALT 18 U/L (0-35); SODIUM 139 mmol/L (137-145); Total Protein 8.1 g/dL (6.3-8.2)
[2021-10-20] MEDS ORDERED: Sodium Chloride 0.9% 1000 ML 1,000 ML ONE (07:27)
[2021-10-20] MEDS ORDERED: Zofran 4 MG/2 ML VIAL ONE (08:25)
--- NOTE | 2021-10-20 08:39 | XRAY ---
Indication: Epigastric pain. Multiple contiguous axial images obtained through the abdomen and pelvis without contrast. Comparison: December 15, 2018. Lung bases demonstrates minimal dependent atelectasis. No infiltrate or effusion. Heart not enlarged. Noncontrasted stomach and bowel loops appear nonobstructed with normal appendix. Minimal scattered descending and sigmoid diverticulosis without diverticulitis. New 2.7 cm left ovary cyst with tiny cul-de-sac fluid presumed from rupture/leaking cyst. No free air. Remaining liver, gallbladder, pancreas, spleen, adrenal glands, kidneys, ureters, bladder, uterus, and aorta are unremarkable for noncontrast exam. Osseous structures intact. Impression: 1. New minimal colonic diverticulosis without diverticulitis 2. New 2.7 cm left ovary cyst with tiny physiologic cul-de-sac fluid. 3. Remaining CT abdomen/pelvis without contrast exam is negative.
[2021-10-20] MEDS ORDERED: PROTONIX 40 MG IV IV ONE ×2 (09:51→09:53)
[2021-10-20] MEDS ORDERED: XYLOCAINE VISCOUS 2% 20 ML CUP PO ONE (09:51)
[2021-10-20] MEDS ORDERED: MAALOX ES 30 ML UNIT DOSE PO ONE (09:51)
[2021-10-20] MEDS ORDERED: MAALOX ES 30 ML UNIT DOSE ONE (09:53)
[2021-10-20] MEDS ORDERED: XYLOCAINE VISCOUS 2% 20 ML CUP ONE (09:53)
[2021-10-20 10:02] VITALS: BP 110/68; PULSE 68; O2SAT 98
== END 2021-10-20 10:03 | disposition home or self-care (01) ==
LOC: ED 06:12
DX: R10.13 Epigastric pain (principal); R06.02 Shortness of breath
CPT/HCPCS: 36415; 74176; 80053; 81015; 82150; 83605; 83690; 84703; 85025; 96360; 96374; 96375; 99284; J2405; A9270-GY

== ENCOUNTER 2021-12-30 23:34 | Emergency (ER) | payer MEDICAID ==
[2021-12-30 23:46] VITALS: O2SAT 96
[2021-12-30] MEDS ORDERED: TORAdol 30 mg Injection IV ONE (23:55)
[2021-12-30] MEDS ORDERED: Zofran 4 MG/2 ML VIAL IV ONE (23:55)
[2021-12-30] MEDS ORDERED: Compazine 10 MG/2 ML IV ONE (23:55)
[2021-12-30] MEDS ORDERED: Sodium Chloride 0.9% 1000 ML 1,000 ML IV STA (23:56)
[2021-12-30] MEDS ORDERED: BENADRYL 50 MG/ML IV ONE (23:57)
--- NOTE | 2021-12-31 00:04 | ERPHSYRPT ---
- History of Present Illness Time Seen by Provider: 12/31/21 00:00 Source: patient Exam Limitations: no limitations Patient Subjective Stated Complaint: " I've had a headache since yesterday." Triage Nursing Assessment: Pt presents to ER with complaints of frontal/temporal headache, pain hurts on bilateral sides of head. Rates pain 8/10 scale. States began yesterday and no "real history" of headaches. Pt is alert and oriented x 3. Skin is pale, hot, and clammy to touch. Pt states she had some nausea but denies vomiting or diarrhea. Denies dizziness or numbness. States has had mild cough. Noted to be febrile upon arrival, oral temp of 100.4. Denies any other sickness in her household or recent exposure to viral illness. Pt ambulates without difficulty. Physician History: Patient is a 21-year-old female presents to emergency department for evaluation of a frontal headache nausea slight cough and low-grade fever. Symptoms started yesterday. Symptoms progressed into today. No neck pain. No photophobia. Pat ient has no meningeal signs. No obvious sick contacts. Patient denies vomiting. No diarrhea. No rash. No trauma. No abdominal pain. Symptoms are constant. Symptoms are moderate in intensity. No specific worsening improving factors. This is not the worst headache of patient's life. Patient states headache progressively worsened over time. Headache was not of acute onset. Patient states is otherwise healthy. She voices no other complaints or concerns at this time. Timing/Duration: yesterday Severity: moderate Modifying Factors: Improves With: nothing (No treatment prior to arrival) Associated Symptoms: nausea, cough, headaches, No vomiting, No abdominal pain, No shortness of breath, No diaphoresis, No chest pain, No malaise, No rash, No syncope, No seizure, No weakness Allergies/Adverse Reactions: No Known Drug Allergies Allergy (Verified 12/30/21 23:44) Home Medications: No Reportable Medications [No Reported Medications] 12/30/21 [History] Hx Tetanus, Diphtheria Vaccination/Date Given: Yes Hx Influenza Vaccination/Date Given: Yes Hx Pneumococcal Vaccination/Date Given: No Immunizations Up to Date: Yes Travel Risk - International Travel Have you traveled outside of the country in past 3 weeks: No - Coronavirus Screening Are you exhibiting any of the following symptoms?: Yes Symptoms: Cough: New Onset, Shortness of Breath, Headaches/Body Aches/Fatigue Close contact with a COVID-19 positive Pt in past 14-21 Days: No - Vaccine Status Have you recieved a Covid-19 vaccination: No - Review of Systems Constitutional: No Symptoms, No Fever, No Chills Eyes: No Symptoms Ears, Nose, & Throat: No Symptoms Respiratory: No Symptoms, No Cough, No Dyspnea Cardiac: No Symptoms, No Chest Pain, No Edema, No Syncope Abdominal/Gastrointestinal: No Symptoms, No Abdominal Pain, No Nausea, No Vomiting, No Diarrhea Genitourinary Symptoms: No Symptoms, No Dysuria Musculoskeletal: No Symptoms, No Back Pain, No Neck Pain Skin: No Symptoms, No Rash Neurological: No Symptoms, No Dizziness, No Focal Weakness, No Sensory Changes Psychological: No Symptoms Endocrine: No Symptoms Hematologic/Lymphatic: No Symptoms Immunological/Allergic: No Symptoms All Other Systems: Reviewed and Negative - Past Medical History Pertinent Past Medical History: No Neurological History: No Pertinent History ENT History: No Pertinent History Cardiac History: No Pertinent History Respiratory History: No Pertinent History Endocrine Medical History: No Pertinent History Musculoskeletal History: No Pertinent History GI Medical History: No Pertinent History History: No Pertinent History Psycho-Social History: No Pertinent History Female Reproductive Disorders: No Pertinent History - Past Surgical History Past Surgical History: Yes Neuro Surgical History: No Pertinent History Cardiac: No Pertinent History Respiratory: No Pertinent History Gastrointestinal: No Pertinent History Genitourinary: No Pertinent History Musculoskeletal: No Pertinent History Female Surgical History: Dilation & Curettage Other Surgical History: D&C 09/2018 - Social History Smoking Status: Never smoker Exposure to second hand smoke: No Drug Use: none Patient Lives Alone: No Significant Family History: no pertinent family hx - Female History Hx Last Menstrual Period: 12/24/21 Hx Now: No - Nursing Vital Signs Nursing Vital Signs: Initial Vital Signs Temperature 100.4 F 12/30/21 23:39 Pulse Rate 104 H 12/30/21 23:39 Respiratory Rate 18 12/30/21 23:39 Blood Pressure 144/85 12/30/21 23:39 O2 Sat by Pulse Oximetry 96 12/30/21 23:39 Pain Scale Pain Intensity 0 - Physical Exam General Appearance: no apparent distress, alert Eye Exam: PERRL/EOMI, eyes nml inspection Ears, Nose, Throat Exam: normal ENT inspection, TMs normal, pharynx normal, moist mucous membranes Neck Exam: normal inspection, non-tender, supple, full range of motion Respiratory Exam: normal breath sounds, lungs clear, airway intact, No respiratory distress Cardiovascular Exam: regular rate/rhythm, normal heart sounds, normal peripheral pulses Gastrointestinal/Abdomen Exam: soft, normal bowel sounds, No tenderness, No mass Back Exam: normal inspection, normal range of motion, No CVA tenderness, No vertebral tenderness Extremity Exam: normal inspection, normal range of motion, pelvis stable Neurologic Exam: alert, oriented x 3, cooperative, normal mood/affect, nml cerebellar function, nml station & gait, sensation nml, No motor deficits Skin Exam: normal color, warm, dry, No rash Lymphatic Exam: No adenopathy SpO2 Interpretation: normal SpO2: 96 O2 Delivery: Room Air - Course Nursing assessment & vital signs reviewed: Yes Ordered Tests: Active Orders 24 hr Category Date Time Status HCG,QUALITATIVE URINE Stat Lab 12/31/21 00:13 Completed UA W/RFX CULTURE Stat Lab 12/31/21 00:13 Completed Medication Summary Discontinued Medications Generic Name Dose Route Start Last Admin Trade Name Sanderq PRN Reason Stop Dose Admin Diphenhydramine HCl 25 mg 12/30/21 23:57 12/31/21 00:19 Diphenhydramine Hcl 50 Mg/Ml Vial IV 12/30/21 23:58 25 mg STAT ONE Administration Diphenhydramine HCl Confirm 12/31/21 00:16 Diphenhydramine Hcl 50 Mg/Ml Vial Administered 12/31/21 00:17 Dose 50 mg .ROUTE .STK-MED ONE Sodium Chloride 1,000 mls @ 999 mls/hr 12/30/21 23:56 12/31/21 00:18 Sodium Chloride 0.9% 1000 Ml IV 12/31/21 00:56 999 mls/hr .Q1H1M STA Administration Sodium Chloride Confirm 12/31/21 00:16 Sodium Chloride 0.9% 1000 Ml Administered 12/31/21 00:17 Dose 1,000 mls @ ud .ROUTE .STK-MED ONE Ketorolac Tromethamine 30 mg 12/30/21 23:55 12/31/21 00:19 Ketorolac Tromethamine 30 Mg/Ml Inj IV 12/30/21 23:56 30 mg STAT ONE Administration Ketorolac Tromethamine Confirm 12/31/21 00:16 Ketorolac Tromethamine 30 Mg/Ml Inj Administered 12/31/21 00:17 Dose 30 mg .ROUTE .STK-MED ONE Ondansetron HCl 4 mg 12/30/21 23:55 Ondansetron Hcl 4 Mg/2 Ml Vial IV 12/30/21 23:56 STAT ONE Prochlorperazine Edisylate 10 mg 12/30/21 23:55 12/31/21 00:20 Prochlorperazine Edisylate 10 Mg/2 Ml Vial IV 12/30/21 23:56 10 mg STAT ONE Administration Prochlorperazine Edisylate Confirm 12/31/21 00:16 Prochlorperazine Edisylate 10 Mg/2 Ml Vial Administered 12/31/21 00:17 Dose 10 mg .ROUTE .STK-MED ONE Lab/Rad Data: Laboratory Results 12/31/21 12/31/21 12/30/21 Range/Units 00:13 00:13 00:15 Urinalys Dipstick Clnc MAIN LAB Urine Color YELLOW (YELLOW) Urine Appearance CLEAR (CLEAR) Urine pH 6.5 (5-6) Ur Specific [place] 1.010 (1.005-1.025) POC Urine Protein Conf NEGATIVE (Negative) Urine Ketones NEGATIVE (NEGATIVE) Urine Nitrite NEGATIVE (NEGATIVE) Urine Bilirubin NEGATIVE (NEGATIVE) Urine Urobilinogen 0.2 (0-1) mg/dL Urine Leukocytes NEGATIVE (NEGATIVE) Urine WBC (Auto) NONE (0-5) /HPF Urine RBC (Auto) NONE (0-2) /HPF U Epithel Cells (Auto) NONE (FEW) /HPF Urine Bacteria (Auto) NONE (NEGATIVE) /HPF Urine RBC TRACE-INTACT (0-5) Nawaf/ul Ur Culture Indicated? NO Urine Glucose NEGATIVE (NEGATIVE) mg/dL Urine HCG, Qual NEGATIVE (Negative) Influenza Type A Ag NEGATIVE (NEGATIVE) Influenza Type B Ag NEGATIVE (NEGATIVE) RSV (PCR) NEGATIVE (Negative) SARS-CoV-2 (PCR) POSITIVE A (NEGATIVE) - Progress Progress: improved Progress Note: Patient reassessed. Headache essentially resolved. Patient states he feels much better and is ready for discharge. Work-up reveals COVID positive test. Patient understands the importance of quarantining. Patient agrees to follow-up with a primary care doctor within 48 hours for evaluation. She voices no other complaint or concerns at this time Portions of this note were created with voice recognition technology. There may be grammatical, spelling, punctuation or sound alike errors 12/31/21 01:02 UA negative for UTI 12/31/21 01:03 Counseled pt/family regarding: lab results, diagnosis, need for follow-up - Departure Departure Disposition: Home Clinical Impression: COVID-19, Viral syndrome Condition: Stable Critical Care Time: No Referrals: SERGIO PRICE, SMITA [Primary Care Provider] - Follow up/PCP as directed Instructions: Headache, Adult (DC) Additional Instructions: Discharge/Care Plan JESUS DE LA O was seen on 12/31/21 in the Emergency Room. The patient was counseled regarding Diagnosis,Lab results, Imaging studies, need for follow up and when to return to the Emergency Room. Prescriptions given: Discharge Note I have spoken with the patient and/or caregivers. I have explained the patient's condition, diagnosis and treatment plan based on the information available to me at this time. I have answered the patient's and/or caregiver's questions and addressed any concerns. The patient and/or caregivers have as good understanding of the patient's diagnosis, condition and treatment plan as can be expected at this point. The vital signs have been stable. The patient's condition is stable and appropriate for discharge from the emergency department. The patient will pursue further outpatient evaluation with the primary care physician or other designated or consulting physician as outlined in the discharge instructions. The patient and/or caregivers are agreeable to this plan of care and follow-up instructions have been explained in detail. The patient and/or caregivers have received these instruction. The patient/and or caregivers are aware that any significant change in condition or worsening of symptoms should prompt an immediate return to this or the closest emergency department or call 911.
[2021-12-31] MEDS ORDERED: Compazine 10 MG/2 ML ONE (00:16)
[2021-12-31] MEDS ORDERED: Sodium Chloride 0.9% 1000 ML 1,000 ML ONE (00:16)
[2021-12-31] MEDS ORDERED: TORAdol 30 mg Injection ONE (00:16)
[2021-12-31] MEDS ORDERED: BENADRYL 50 MG/ML ONE (00:16)
[2021-12-31 00:36] LABS: Appearance CLEAR (CLEAR); Bilirubin NEGATIVE (NEGATIVE); Dipstick done @ ? MAIN LAB; Glucose NEGATIVE (NEGATIVE); Ketones NEGATIVE (NEGATIVE); Nitrite NEGATIVE (NEGATIVE); Ph 6.5 (5-6); Protein,Urine Dip NEGATIVE (Negative); RBC TRACE-INTACT Ery/ul (0-5); Urobilinogen 0.2 mg/dL (0-1)
[2021-12-31 00:49] LABS: Urine Cultured Indicated? NO
[2021-12-31 00:56] LABS: INFLUENZA A NEGATIVE (NEGATIVE); INFLUENZA B NEGATIVE (NEGATIVE); RESPIRATORY SYNCTIAL VIRUS NEGATIVE (Negative)
[2021-12-31 00:58] LABS: SARS-CoV-2 Xpert Express POSITIVE (NEGATIVE)
[2021-12-31 01:15] VITALS: BP 122/81; PULSE 101
== END 2021-12-31 01:15 | disposition home or self-care (01) ==
LOC: ED 23:34
DX: U07.1 COVID-19 (principal); R51.9 Headache, unspecified; R11.0 Nausea; R05.1 Acute cough; R50.9 Fever, unspecified; Z28.310 Unvaccinated for COVID-19
CPT/HCPCS: 0241U; 36000; 81015; 81025; 96374; 96375; 99284; J1200; J1885

== ENCOUNTER 2023-06-23 01:17 | Emergency (ER) | payer OTHER ==
[2023-06-23] MEDS ORDERED: DELTASONE 20 MG ONE (01:55)
[2023-06-23] MEDS ORDERED: DUONEB 0.5-3 MG/3 ml Neb IH ONE ×2 (01:55→02:08)
[2023-06-23 03:58] LABS: ALBUMIN 3.9 g/dL (3.5-5.0); ALKALINE PHOSPHATASE 67 U/L (38-126); BILIRUBIN,TOTAL < 0.10 mg/dL (0.2-1.3); BLOOD UREA NITROGEN 11 mg/dL (7-17); CHLORIDE 107 mmol/L (98-107); Carbon Dioxide 23 mmol/L (22-30); Creatinine 1 0.91 mg/dL (0.52-1.04); EST GLOMERULAR FILTRATION RATE 91.5 ML/MIN; Glucose 88 mg/dL (74-106); Potassium 3.8 mmol/L (3.5-5.1); SGOT/AST 20 U/L (14-36); SGPT/ALT 15 U/L (0-35); SODIUM 138 mmol/L (137-145); TROPONIN < 0.012 ng/mL (0.000-0.034); Total Protein 6.9 g/dL (6.3-8.2)
[2023-06-23 03:59] LABS: INFLUENZA A NEGATIVE (NEGATIVE); INFLUENZA B NEGATIVE (NEGATIVE); RESPIRATORY SYNCTIAL VIRUS NEGATIVE (NEGATIVE); SARS-CoV-2 Xpert Express NEGATIVE (NEGATIVE)
[2023-06-23 04:00] LABS: Hemoglobin 13.5 g/dL (12.0-16.0); Mean Cell Volume 84.5 fL (78-100); Mean Corpuscular Hemoglobin 27.8 pg (26-32); Mean Corpuscular Hgb Concent. 32.9 g/dL (32-36); Red Blood Count 4.85 x10^6/uL (4.1-5.4); White Blood Count 7.6 x10^3/uL (4.0-10.5)
[2023-06-23 04:01] LABS: Mean Platelet Volume 9.7 fL (7.5-11.0); Platelet Count 331 x10^3/uL (150-450); Red Cell Distribution Width 13.3 % (11.5-14.0)
[2023-06-23 04:05] LABS: ANION GAP 11.8 MEQ/L (5-15)
--- NOTE | 2023-06-23 08:46 | XRAY ---
Indication: Chest pain and short of breath. Comparison: February 23, 2021 Portable chest again demonstrates normal heart and lungs. Bony thorax intact. No new/acute findings.
== END 2023-06-24 03:07 | disposition home or self-care (01) ==
LOC: ED 01:19
DX: R05.9 Cough, unspecified (principal); R07.89 Other chest pain; Z79.52 Long term (current) use of systemic steroids
CPT/HCPCS: 0241U; 36415; 71045; 80053; 84484; 85027; 85379; 94640; 99283; A9270-GY

== ENCOUNTER 2024-07-08 23:06 | Emergency (ER) | payer OTHER ==
[2024-07-08 23:20] VITALS: RESP 20; TEMP 97.5
--- NOTE | 2024-07-08 23:35 | ERPHSYRPT ---
- History of Present Illness Source: patient Exam Limitations: no limitations Patient Subjective Stated Complaint: c/o shortness of breath Triage Nursing Assessment: patient brought to ED by with c/o of shortness of breath. patient states that she has felt bad for the past week but the last 2 days has been worse. patient is 98% on room air, denies chest pain, patient has a non-productive cough, lung sounds clear throughout, patient is 28 weeks , heart tone-150, gait steady, vitals wnl, skin w/n/d, patient stated she was negative for covid, rsv, and flu. patient doesn't appear to be in any distress at this time. Physician History: Patient has a complaints of shortness of breath has been going on for about for 5 days. She got a COVID flu and RSV yesterday it was negative. She said she also has a sore throat. She says that the exerting herself makes the shortness of breath worse as well as lying down flat. She is 28 weeks .She does not have any chest pain or respiratory distress. She does not have any classic symptoms of a pulmonary embolism.The cough is nonproductive. Allergies/Adverse Reactions: No Known Drug Allergies Allergy (Verified 07/08/24 23:20) Home Medications: Pnv No.95/Ferrous Fum/Folic AC [ Caplet] 1 tab PO DAILY 07/08/24 [History] Hx Tetanus, Diphtheria Vaccination/Date Given: Yes Hx Influenza Vaccination/Date Given: Yes Hx Pneumococcal Vaccination/Date Given: No Travel Risk - International Travel Have you traveled outside of the country in past 3 weeks: No - Emerging Infectious Disease Are you exhibiting symptoms associated with any current EIDs: Yes Symptoms: Shortness of Breath - Review of Systems Constitutional: No Symptoms Eyes: No Symptoms Ears, Nose, & Throat: No Symptoms Respiratory: Cough Cardiac: No Symptoms - Past Medical History Pertinent Past Medical History: No Neurological History: No Pertinent History ENT History: No Pertinent History Cardiac History: No Pertinent History Respiratory History: No Pertinent History Endocrine Medical History: No Pertinent History Musculoskeletal History: No Pertinent History GI Medical History: No Pertinent History History: No Pertinent History Psycho-Social History: No Pertinent History Female Reproductive Disorders: No Pertinent History Other Medical History: D and C - Past Surgical History Past Surgical History: Yes Neuro Surgical History: No Pertinent History Cardiac: No Pertinent History Respiratory: No Pertinent History Gastrointestinal: No Pertinent History Genitourinary: No Pertinent History Musculoskeletal: No Pertinent History Female Surgical History: Dilation & Curettage Other Surgical History: D&C 09/2018 Significant Family History: no pertinent family hx - Female History Hx Last Menstrual Period: 28 weeks Hx Now: Yes Gestational Age: 28 weeks - Social History Smoking Status: Never smoker Exposure to second hand smoke: No Drug Use: none Patient Lives Alone: No - Social Determinants of Health Will the patient participate in the screening: Declined to provide - Nursing Vital Signs Nursing Vital Signs: Initial Vital Signs O2 Sat by Pulse Oximetry 99 07/08/24 23:09 Pain Scale Pain Intensity 0 - Physical Exam General Appearance: no apparent distress Eye Exam: PERRL/EOMI Ears, Nose, Throat Exam: hearing grossly normal Respiratory Exam: normal breath sounds, chest tenderness, lungs clear, airway intact, No respiratory distress Cardiovascular/Chest Exam: normal heart sounds, regular rate/rhythm, murmur Abdominal/Gastrointestinal Exam: soft, normal bowel sounds, No tenderness SpO2 Interpretation: normal, borderline oxygenation SpO2: 99 - Course Nursing assessment & vital signs reviewed: Yes EKG Interpreted by Me: RATE, Sinus Rhythm, NORMAL AXIS, NORMAL INTERVALS, NORMAL QRS Ordered Tests: Active Orders 24 hr Category Date Time Status EKG-ER Only STAT Care 07/08/24 23:36 Active IV Insertion STAT Care 07/08/24 23:23 Active CHEST 1 VIEW (PORTABLE) Stat Exams 07/08/24 23:28 Taken Respiratory Therapy Assessment DAILY RT 07/09/24 00:14 Active Medication Summary Generic Name Dose Route Start Last Admin Trade Name Freq PRN Reason Stop Dose Admin Albuterol Sulfate 1 gm 07/08/24 23:28 07/09/24 00:06 Albuterol Sulfate 8 Gm Mdi Hfa 08/07/24 23:27 1 gm Q2-4HPRN PRN Administration SHORTNESS OF BREATH/WHEEZING - Progress Progress: improved Air Movement: good Medical Desision Making - Diagnostic Testing Radiological Interpretation: Interpreted by me - Risk of complications Minimal Risk: Minimal risk of morbidity - Departure Departure Disposition: Home Clinical Impression: Shortness of breath Condition: Stable Critical Care Time: No Referrals: SERGIO PRICE NP [Primary Care Provider] - Follow up/PCP as directed
[2024-07-09] MEDS ORDERED: Ventolin Hfa MDI IH ONE
[2024-07-09] MEDS: Ventolin Hfa MDI IH PRN (00:06)
[2024-07-09 01:06] VITALS: BP 117/98; PULSE 99; O2SAT 96
--- NOTE | 2024-07-09 08:53 | XRAY ---
Indication: Dyspnea. Comparison: June 23, 2023 Portable chest demonstrates new right infrahilar hazy interstitial alveolar opacities, possible pneumonia/pneumonitis in right clinical setting. Remaining heart, left lung, and bony thorax normal. Comment: Right lung finding not reported by interpreting ER clinician. Telephone report was given to Dr. Ochoa at 0848 hrs. on July 09, 2024.
== END 2024-07-09 01:30 | disposition home or self-care (01) ==
LOC: ED 23:06
DX: R06.02 Shortness of breath (principal); J02.9 Acute pharyngitis, unspecified; Z33.1 Pregnant state, incidental
CPT/HCPCS: 71045; 93005; 99284; A9270-GY

== ENCOUNTER 2025-04-14 18:13 | Emergency (ER) | payer OTHER ==
[2025-04-14 18:38] VITALS: RESP 18; TEMP 98.3
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
[2025-04-14 20:03] VITALS: BP 119/68; PULSE 78
[2025-04-14 20:15] VITALS: O2SAT 100
[2025-04-14] MEDS ORDERED: BACIGUENT PACKET ONE (20:25)
[2025-04-14] MEDS: BACIGUENT PACKET TP ONE (20:25)
[2025-04-14] MEDS ORDERED: PERCOCET TABLET 5/325MG ONE (20:35)
[2025-04-14] MEDS: PERCOCET TABLET 5/325MG PO STA ×2 (20:35→20:36)
[2025-04-14] MEDS ORDERED: MOTRIN 600 MG ONE (20:35)
[2025-04-14] MEDS: MOTRIN 600 MG PO ONE (20:36)
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
== END 2025-04-14 20:55 | disposition home or self-care (01) ==
LOC: ED 18:13
DX: S90.02XA Contusion of left ankle, initial encounter (principal); S00.03XA Contusion of scalp, initial encounter; V86.59XA Driver of other special all-terrain or other off-road motor vehicle injured in nontraffic accident, initial encounter; M25.472 Effusion, left ankle